=== PATIENT | female | born 1970 | race Caucasian/White ===

== ENCOUNTER 2020-09-26 09:10 | Inpatient (IN) | payer SELFPAY ==
[2020-09-26 09:11] VITALS: BMI 27.2
[2020-09-26 09:12] VITALS: BP 125/63; PULSE 83; RESP 18; TEMP 36.3; O2SAT 97
[2020-09-26 14:00] VITALS: BP 102/66; PULSE 81; RESP 18; TEMP 36.7; O2SAT 96
[2020-09-26] MEDS: sertraline 50 mg Tablet PO (15:47)
[2020-09-26] MEDS: hyDROXYzine 25 mg Capsule 50 MG PO (15:47)
--- NOTE | 2020-09-26 15:52 | PC.NURSE ---
Addendum entered by Sandy Fam LPN 09/26/20 18:36: late entry, prn med effective no further c/o anxiety Original Note: PRN VISTARIL 50 MG GIVEN PO PER PT C/O STATED ANXIETY. WILL CONT TO MONITOR.
[2020-09-26 20:41] VITALS: BP 95/55; PULSE 72; RESP 16; TEMP 36.8; O2SAT 95
--- NOTE | 2020-09-26 21:47 | PC.NURSE ---
PM ASSESSMENT PT IN HER ROOM, SLEEPY, PT DENIES SI/HI. DENIES PAIN, DENIES AH/VH. PT DID NOT WANT TO TALK. V/S ARE WNL, HEART/LUNG SOUNDS ARE NORMAL. WILL CONTINUE TO MONITOR
--- NOTE | 2020-09-26 22:41 | PC.NURSE ---
ALCOHOL IN BELONGINGS PT HAD A PINK KINKY SHOT SINGLE ALCOHOL BOTTLE IN BELONGINGS, FOUND BY POCKET CLOSER ON ADMISSION, IT WAS GIVEN TO FINISHER [employer] FOR DISPOSAL.
[2020-09-27 06:00] VITALS: BP 111/61; PULSE 79; RESP 16; TEMP 36.3; O2SAT 95
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
[2020-09-27] MEDS: sertraline 50 mg Tablet PO (08:58)
[2020-09-27 13:45] VITALS: BP 110/60; PULSE 93; RESP 18; TEMP 37.3; O2SAT 92
[2020-09-27 19:26] VITALS: BP 116/71; PULSE 95; RESP 17; TEMP 37.2; O2SAT 93
[2020-09-27] MEDS: hyDROXYzine 25 mg Capsule 50 MG PO (20:33)
--- NOTE | 2020-09-27 21:18 | PC.NURSE ---
PM ASSESSMENT V/S ARE WNL, PT DENIES PAIN, PT HEART/LUNG SOUNDS ARE WNL. PT DID REQUEST MEDICATION TO HELP WITH HER ANXIETY. MED NURSE NOTIFIED, PT REQUESTED INFORMATION REGARDING HER SYNTHROID, INFORMATION GIVEN TO PT. PT REQUESTED A SHOWER. PT ATE SNACK, RETURNED TO DAYROOM TO INTERACT WITH OTHER PATIENTS, AND IS NOW RESTING IN HER ROOM
[2020-09-28 06:00] VITALS: BP 109/72; PULSE 80; RESP 17; TEMP 36.6; O2SAT 96
[2020-09-28] MEDS: sertraline 50 mg Tablet PO (08:21)
[2020-09-28] MEDS: levothyroxine 100 mcg Tablet PO (08:22)
[2020-09-28] MEDS: nicotine 21 mg Patch 1 PATCH TRANSDERMA (08:24)
[2020-09-28 14:00] VITALS: BP 109/66; PULSE 86; RESP 16; TEMP 36.8; O2SAT 96
--- NOTE | 2020-09-28 18:19 | P.PN_ITS ---
Subjective NPU Subjective: Interval history: Betsy presented today having been fully restarted on her medications she was on previously reporting that she is feeling better. She was open to the possibility of discharge but our option of SOC was taken off of the table due to bad weather and a lot of the other options were also unavailable due to logistics related to the bad weather. She reports that she is not having any side effects to the resumption of the medication. Reports eating better and sleeping better as well. Mental Status Exam MSE Comments: This is an overweight white female who presents looking older than her stated age in hospital scrubs with limited grooming and adequate eye contact. No abnormal movements except for mild psychomotor retardation. Cooperative with exam in no acute distress. Speech was normal rate and slightly decreased volume. Mood described as a little better, affect congruent. Thought process organized. Thought content: Patient denied active suicidal or homicidal ideation, there were no delusions reported or noted, she denied any auditory or visual hallucinations. Attention and concentration were intact and memory appeared reliable but none were formally tested. She is alert and oriented x3. Insight and judgment were fair impulse control is limited. Vitals/I&O/Wt Last Vital Signs Temp 97.2 F L 09/28/20 22:00 Pulse 84 09/28/20 22:00 Resp 18 09/28/20 22:00 BP 112/70 09/28/20 22:00 Pulse Ox 94 09/28/20 22:00 A&P Additional A&P Information (1) Depression: (2) Anxiety: (3) Parent-child relational problem: (4) Partner relational problem: (5) Homeless: Additional A&P Information This is a 50-year-old white female with a known history of mental health challenges as well as current financial and psychosocial issues who presents homeless and off of her medication with an openness to restart medication and interested in assistance to outpatient resources in the community. 1. Continue current medication. 2. Continue every 15 minute checks for safety. 3. Encourage individual, group and milieu therapies. 4. We will work with treatment team to find possible discharge options and get connected to services. Attestations NPU Medical Necessity Statement*: Inpatient hospitalization is medically necessary and the clinically appropriate intervention at this time. We will monitor medications and make changes as indicated. Likely length of stay 1-3 days. Coding Level of Care Code Acute Clinical Psychologist Licensed for Annette Richardson
[2020-09-28 22:00] VITALS: BP 112/70; PULSE 84; RESP 18; TEMP 36.2; O2SAT 94
[2020-09-29 06:00] VITALS: BP 104/64; PULSE 80; RESP 18; TEMP 36.5; O2SAT 95
[2020-09-29] MEDS: levothyroxine 100 mcg Tablet PO (08:46)
[2020-09-29] MEDS: sertraline 50 mg Tablet PO (08:46)
[2020-09-29] MEDS: hyDROXYzine 25 mg Capsule 50 MG PO ×2 (08:50→21:22)
[2020-09-29] MEDS: nicotine 21 mg Patch 1 PATCH TRANSDERMA (08:50)
[2020-09-29 14:00] VITALS: BP 103/64; PULSE 80; RESP 18; TEMP 36.1; O2SAT 94
--- NOTE | 2020-09-29 15:15 | PM.NPN ---
Subjective NPU Subjective: Interval history: Continues to report improved mood, denies any interval suicidal ideation, reports improving depressive symptoms, anxiety symptoms although continues to report ongoing stressors. Denies any interval psychotic symptoms Reports being compliant with medication, denies any medication side effects Mental Status Exam MSE Comments: Appears stated age, wearing hospital scrubs, somewhat unkempt, disheveled, polite, cooperative, calm, good eye contact Psychomotor activity is neither increased nor decreased, no agitation Speech is normal rate and volume, spontaneous, fair articulation, not pressured I am feeling better, full range, not labile Alert and oriented to person, place, time, situation Memory and concentration appear to be intact per interview Thought process, linear, no flight of ideas Thought content, no delusions, no hallucinations, no suicidal homicidal ideation Insight and judgment appear to be intact Vitals/I&O/Wt Last Vital Signs Temp 97.0 F L 09/29/20 14:00 Pulse 80 09/29/20 14:00 Resp 18 09/29/20 14:00 BP 103/64 09/29/20 14:00 Pulse Ox 94 09/29/20 14:00 A&P Assessment and plan (1) Depression: Status: Acute (2) Anxiety: Status: Acute Additional A&P Information Reports improved mood and anxiety, reports being compliant with medication with no reported medication side effects CONTINUE current medication Continue to monitor Continue to coordinate for discharge, follow-up care Attestations NPU Medical Necessity Statement*: Continues to require psychiatric hospitalization for medication stabilization as well as coordination for safe discharge including psychiatric follow-up Coding Level of Care Code Acute Heat Treat Supervisor for Annette Richardson Diagnoses Depression F32.9 Anxiety F41.9
[2020-09-29 20:17] VITALS: BP 116/75; PULSE 87; RESP 17; TEMP 36.9; O2SAT 97
[2020-09-30 06:00] VITALS: BP 108/69; PULSE 85; RESP 17; TEMP 36.5; O2SAT 97
[2020-09-30] MEDS: sertraline 50 mg Tablet PO (07:52)
[2020-09-30] MEDS: nicotine 21 mg Patch 1 PATCH TRANSDERMA (07:52)
[2020-09-30] MEDS: levothyroxine 100 mcg Tablet PO (07:52)
[2020-09-30] MEDS: hyDROXYzine 25 mg Capsule 50 MG PO (07:54)
--- NOTE | 2020-09-30 09:57 | P.DS_ITS ---
Diagnoses at Discharge Discharge Diagnosis (1) Depression: Status: Acute (2) Anxiety: Status: Acute Hospital Course Hospital Course Patient presented to [facility] emergency department with worsening depressive symptoms and anxiety symptoms in the context of family stress. At the time of admission patient was started on Zoloft and buspirone which was titrated up to Zoloft 50 mg daily and buspirone 15 mg twice daily which the patient tolerated well with no reports of any medication side effects. Patient noted significantly improved mood and denied any suicidal ideation throughout her hospital stay. Patient had ongoing concerns about exacerbation of her symptoms if she returned back to her current living arrangement and requested assistance with placement in a senior living. Patient participated in unit activities to include unit milieu with no reports of any behavioral disturbances. Patient was not suicidal at the time of discharge and did not appear to pose an imminent threat of harm to self or others. Low to moderate risk of harm to self given no current suicidal ideation and no current report of any psychiatric symptoms although patient's risk may be elevated if she is noncompliant with her medication or medication management follow-up or continues to have difficulty with adaptive coping strategies in the context of ongoing stressors. Risk medication included psychiatric ho spitalization with observation for return of any worsening depressive symptoms as well as medication stabilization and coordination for post discharge follow- up. Patient was able to communicate her understanding of the need to be compliant with her medication medication management follow-up as well as the need to abstain from any substances or alcohol in order to further mitigate her risk of harm to self. Mental Status Exam MSE Comments: Sitting up on her bed, calm, cooperative, interactive, good eye contact, pleasant Psychomotor activity is neither increased nor decreased, no agitation Speech is normal rate and volume, spontaneous, fair articulation, not pressured I feel good, full range, smiles appropriately at times, not labile Alert and oriented to person, place, time, situation Memory and concentration appear to be intact per interview Thought process, linear Thought content, no delusions, no hallucinations, no suicidal or homicidal ideation Insight and judgment appear to be intact Discharge Data Vitals: Last Vital Signs Temp 97.7 F 09/30/20 06:00 Pulse 85 09/30/20 06:00 Resp 17 09/30/20 06:00 BP 108/69 09/30/20 06:00 Pulse Ox 97 09/30/20 06:00 Discharge Plan Discharge Patient Disposition: Home Condition: Stable Prescriptions: New sertraline 50 mg Tablet 50 mg PO DAILY Qty: 30 RF: 0 levothyroxine [Levoxyl] 100 mcg Tablet 100 mcg PO DAILY Qty: 30 RF: 0 buspirone 15 mg Tablet 15 mg PO 0900,2100 Qty: 60 RF: 0 Continued Synthroid 100 mcg Tablet 100 mcg PO DAILY RF: 0 Discontinued Motrin 600 mg Tablet 600 mg PO Q6H PRN (Reason: Pain (Scale Score 1-3)) RF: 0 Discharge Orders: Discharge Order (Routine); Ordered 09/30/20 Ordered By: Aby Wright Referrals: [facility] Medicine [Other] - 10/11/20 1:[address] [facility] [Outside] Discharge Diet: Usual diet Discharge Activity: Resume usual activity Discharge Attestations NPU Time Spent in Discharge Care*: greater than 30 min Status at Discharge: Cognitive status at discharge: cognitively intact , Behavioral status at discharge: cooperative , Functional status at discharge: independent ambulation Overall status at discharge: patient is back to baseline Coding Level of Care Code Acute Director Community Organization for Annette Richardson Diagnoses Depression F32.9 Anxiety F41.9
[2020-09-30 10:26] VITALS: BP 108/69; PULSE 85; RESP 17; TEMP 36.5; O2SAT 97
== END 2020-09-30 13:18 | disposition home or self-care (01) | DRG 880 ==
PROVIDERS: Admitting Provider Psychiatry & Neurology Psychiatry; Visit Provider Psychiatry & Neurology Psychiatry
DX: F41.8 Other specified anxiety disorders (principal); R45.851 Suicidal ideations; E03.9 Hypothyroidism, unspecified; Z59.0 Homelessness; Z63.8 Other specified problems related to primary support group
CPT/HCPCS: 12345